=== PATIENT | male | born 1955 | race Two or more races ===

== ENCOUNTER 2025-03-14 08:07 | Inpatient (IN) | payer OTHER ==
[~2025-03-14] VITALS: Ht 188 cm; Wt 122.4 kg
[2025-03-14] MEDS ORDERED: ceFAZolin 2 GM/D5W50ml 50 ML IV ONE (08:20)
[2025-03-14] MEDS ORDERED: KETAMINE 50mg/ML 1ml syringe ONE (11:53)
[2025-03-14] MEDS ORDERED: GLYCOPYRROLATE 0.2 MG/ML 1ML VIAL ONE (11:54)
[2025-03-14] MEDS ORDERED: PROPOFOL 10 MG/ML 20 ML IV ONE (11:54)
[2025-03-14] MEDS ORDERED: fentaNYL CITRATE 100 MCG/2 ML VL ONE (11:54)
[2025-03-14] MEDS ORDERED: fentaNYL CITRATE 5 ML ONE (11:54)
[2025-03-14] MEDS ORDERED: HYDROmorphone HCL 2 MG/ML VL/or syr ONE (11:54)
[2025-03-14] MEDS ORDERED: MIDAZOLAM HCL 2MG/2ML 2ml VIAL (1mg/ml) ONE (11:54)
[2025-03-14] MEDS ORDERED: KETOROLAC TROMETH 30 MG/ML 1ML VIAL ONE (11:54)
[2025-03-14] MEDS ORDERED: ROCURONIUM 10MG/ML 10ML VIAL IV ONE (11:54)
[2025-03-14] MEDS ORDERED: ONDANSETRON HCL 4 MG/2 ML VIAL ONE (11:54)
--- NOTE | 2025-03-14 12:10 | DVHHP2 ---
Admitting Diagnosis: tammy man being admitted for elective spine surgery History of Present Illness Timing/Duration of Back Pain: Getting worse Quality of Back Pain: Fullness, Sharpness, Stabbing Back Pain Location: Lumbar spine Back Pain Radiation: Thigh area, Lower legs Method of Injury/Prior Factors: Prior injury Modifying Factors for Back Sarahy: None Associated Symptoms of Back Pa: Numbness in legs, Numbness in feet, Tingling in legs, Tingling in feet, Sensory loss, Motor loss Review of Systems Constitutional: No symptom reported Ears, Nose, & Throat: No symptom reported Eyes: No symptom reported Pulmonary/Respiratory: No symptom reported Cardiovascular: No symptom reported Genitourinary: No symptom reported Musculoskeletal: Muscle stiffness, Muscle atrophy Skin: No symptom reported Psychiatric: No symptom reported Endocrine: No symptom reported Hemotologic/Lymphatic: No symptom reported H&P Exam Vital Signs Vital Signs Date Time Temp Pulse Resp B/P (MAP) Pulse Ox O2 Delivery O2 Flow Rate FiO2 03/14/25 08:39 97.8 66 20 157/89 (111) 97 97.8 General Appeara: Well developed, Well nourished, Normal Appearance Head Exam: Normal inspection Neck Exam: Normal inspection, Non-tender, Normal alignment Eye Exam: bilateral eye Normal inspection, bilateral eye PERRL, bilateral eye EOMI Ear Exam: bilateral ear Auricle normal, bilateral ear Canal normal, bilateral ear TM normal Nasal Exam: Normal inspection Mouth: Normal Inspection Pulmonary/Respiratory: Normal inspection, Normal breath sounds, Chest non- tender, Lungs clear Cardiovascular/Chest: Normal inspection, Regular rate, Normal Rhythm Abdominal Exam: Normal bowel sounds, Soft, No tenderness, No hepatospenomegaly, No masses Rectal Exam: Deferred Back Exam: Decreased range of motion, Muscle spasm Pelvic Exam: Not done Male Genital Exam: Not done Shoulder Exam: Normal inspection, Non-tender, Normal ROM Elbow/Forearm Exam: Normal inspection, Non-tender, Normal ROM Hand Exam: Normal inspection, Non-tender, Normal ROM Hip exam: Normal inspection, Non-tender, Normal range of motion Legs: bilateral leg non-tender, bilateral leg normal inspection, bilateral leg normal range of motion, bilateral leg no evidence of injury Knees: bilateral knee non-tender, bilateral knee normal inspection, bilateral knee normal range of motion, bilateral knee no evidence of injury Ankle Exam: bilateral ankle Normal inspection, bilateral ankle Non-tender, bilateral ankle Normal range of motion, bilateral ankle No evidence of injury Foot: bilateral foot non-tender, bilateral foot normal inspection, bilateral foot normal range of motion, bilateral foot no evidence of injury Tendon/ Neuro: Motor deficit, Sensory deficit WOODWORKER Exam: Normal hearing, Normal speech, PERRL Motor/Sensory: Sensory deficit, Weak motor strength RLE, Weak motor strength LLE Deep Tendon Ref: All intact Neuro/Mental St: Alert, Oriented Appearance: Appropriate appearance, Appropriate insight Eye contact/ Speech: Cooperative, Good eye contact, Normal speech Coordination/Gait: Abnormal gait Skin Exam: Normal inspection, Normal color, Warm/dry Lymphatic: Normal inspection Assessment/Plan Primary Diagnosis lumbar spinal stenosis with severe neurogenic claudication Plan admit for elective spine surgery Plan discussed with: Patient LENNY QUINTERO MD Mar 14, 2025 12:09
[2025-03-14] MEDS ORDERED: TRANEXAMIC ACID 20 ML ONE (12:42)
[2025-03-14] MEDS ORDERED: VANCOMYCIN HCL 1000 MG VL ONE (12:43)
[2025-03-14] MEDS ORDERED: SUGAMMADEX 200mg/2ml Vial (100MG/ML) IV ONE (15:07)
[2025-03-14] MEDS ORDERED: MORPHINE SULFATE INJ 2 MG/ml SYRG IV PRN ×2 (16:00)
[2025-03-14] MEDS ORDERED: NITROGLYCERIN 0.4 MG SL TAB SL PRN (16:00)
[2025-03-14] MEDS ORDERED: ONDANSETRON HCL 4 MG/2 ML VIAL IV PRN (16:00)
[2025-03-14] MEDS ORDERED: ACETAMINOPHEN 325 MG TAB PO PRN (16:00)
[2025-03-14] MEDS ORDERED: HYDROcodone-ACET 10/325MG TAB PO PRN (16:00)
--- NOTE | 2025-03-14 16:04 | DVHOP2 ---
Operative Report - 2 Report Details Date: 03/14/25 Preop Diagnosis: lumbar spinal stenosis with incapacitating neurogenic claudication Postop Diagnosis: same Surgeon: Meng Mena MD Commercial Roofing Estimator: Nanci Talavera Anesthesiologist: Myrna Husain MD Anesthesia: General Consent: The patient was informed of the risks and benefits of the procedure. These include but are not limited to complications of anesthesia, postoperative infection, incomplete relief of symptoms, recurrence of symptoms, damage to blood vessels, nerves and tendons, deep venous thrombosis, pulmonary embolism and possible need for repeat surgery in the future. Name of Procedure Performed Pre-op Diagnosis: Lumbar Degenerative Disk Disease and Lumbar Spinal Stenosis causing Incapacitating back pain, radiculopathy and progressive neurologic deficit Post-op Diagnosis: Lumbar Degenerative Disk Disease and Lumbar Spinal Stenosis causing Incapacitating back pain, radiculopathy and progressive neurologic deficit Procedure: Lumbar 5 laminectomy with Lumbar 5 foraminotomies and facetectomies to decompress central canal and Lumbar 5 nerve roots Lumbar 4 laminectomy with Lumbar 4 foraminotomies and facetectomies to decompress central canal and Lumbar 4 nerve roots Lumbar 4 to 5 posterior spinal interbody fusion with PEEK cage / bone graft Lumbar 4 to 5 posterior spinal instrumentation with pedicle screws Local Bone Autograft For Fusion Allograft Bone Substitute (Bacterin) to augment Fusion Use of Demineralized Bone Matrix to Augment Fusion Microscope For Microdissection Surgeon: Meng Mena MD Assist: BERENICE Tang Anesthesia: General Fluids and EBL: See anesthesia note Patient was seen in the Pre Anesthesia Care Unit (PACU) and the operative site was initialed by me. All questions were answered to the patients satisfaction and chart reviewed. The patient was taken to the operative room where pre- operative antibiotics were given 30 minutes prior to incision. General anesthesia was induced and neuro-monitoring leads placed. Edward catheter was placed. The patient was turned prone onto the [facility] [place] spinal table. While positioning, I made sure that the belly was free to allow proper expansion of the lungs. The hips were extended and all bony prominences padded. The shoulders were abducted 80 degree and the elbows flexed 100 degrees with no tension on the brachial plexus. I check the foot arterial pulses and they were palpable. The patient was prepped and draped and time out was taken at this time per usual protocol. At this time, the C-arm fluoroscope was brought in and was used to aric the incision borders proximally and distally. Using a Number 10 Blade, an incision was made extending it proximally and distally per C arm aric from the posterior spinous process of lumbar 4,5 down to the lumbo-dorsal fascia. All bleeding was controlled with electrocautery. Self-retaining retractors were placed. Electrocautery was then used to take down the lumbo- dorsal fascia, to free the muscle off the bone bilaterally. A Timmy retractor was placed over the posterior spinous process proximally and a lateral C-arm fluoroscope image was taken to insure we were at the correct level. Next, using bovie electro cautery, The deep fascia laterally to the facet joints was removed to expose the transverse processes of lumbar 4 and 5 while taking care to avoid injuring the facet capsule at the proximal end of the incision. Next, the microscope was bought in for visualization and using a Luxell rongeur, the posterior spinous process of lumbar 4 and 5 bone were removed and the bone was saved for use as local autograft. I used alternating Kerison 2 mm and 3 mm rongeurs to perform central laminectomies lumbar 5 and 4 to decompress the central canal. Next using alternating Kerison 2mm and 3 mm rongeurs, the superior articular facets of lumbar 4 and 5 were removed bilaterally to decompress the lateral recess (facetectomies) and then extended proximally to decompress the foramen bilaterally (foraminotomies). I used a ball tipped nerve probed to insure that the respective nerve roots were able to be mobilized 5mm in each direction were unimpeded in the lateral recess and foramen. Next I carefully inspected the dura to make sure no durotomy was visible and it was not. Next I retracted the lumbar 5 nerve root on the right side medially and used increased size edwina to prepare the disk space. Further preparation was done the curved curettes and a pituitary ronegour to remove loose tissue to get down to a clean bed of bleeding bone. Next I used trials until the proper size and tension achieved and placed a PEEK inter body device with bone graft placed in it into the L4/5 disc space. I covered the exposed dura with gelfoam soaked in thrombin and the microscope was wheeled away from the operative filed. The C-arm fluoroscope was brought in and perfect AP views of the lumbar 4 and 5 pedicles were obtained. I placed bilateral pedicle screws at these levels by: using a Lenke awl to make a fixed wing pilot hole, then a ball tip robe to make sure there was no pedicle breach, then a tap to prepare the track and a 6.5 mm diameter 45 mm length pedicle screw was placed bilaterally. This step to place bilateral pedicle screws was repeated up to the lumbar 4 and 5 level. Next, the c-arm fluoroscope took an AP and lateral x-ray to ensure proper placem ent of the pedicle screws. Next, the neuro-stimulation probe was placed over the tip of each screw and each screw stimulated only after a current greater than 10 mA was delivered to the screw. Next , I took a Midas Jacek Drill to decorticate the transverse process which were exposed and local bone graft, Bacterin allograft bone substitute and Demineralized bone matrix were placed a long the inter transverse process intervals bilaterally (the fusion bed). Next a curved misti sized to fit the pedicle screw interval was placed and secured to each pedicle screw using set screws, The set screws were tightened using a torque screwdriver (set to 10 N*M torque) to secure the misti to the pedicle screws bilaterally. Final AP and lateral C arm fluoroscopic films were taken at this time. Next a 10 Maori diameter Hemovac drain was laced deep to the lumbo- dorsal fascia. The lumbo-dorsal fascia was closed with interrupted 0-Vicryl sutures. The subcutaneous tissue was closed with interrupted 2-0 Vicryl sutures. The skin was closed with running 2-0 nylon suture. Sterile dressings were place. The pt. was turned supine onto the stretcher, extubated and taken to the recovery room in stable condition. Cpt code: [id number] Procedure Details Procedure Details: see name of procedure section Condition Stable Disposition Still a Patient MENG MENA MD Mar 14, 2025 16:03
[2025-03-14 16:24] VITALS: PULSE 64; RESP 12; O2SAT 98
[2025-03-14] MEDS ORDERED: ONDANSETRON HCL 4 MG/2 ML VIAL IV ONE (16:30)
[2025-03-14] MEDS ORDERED: HYDROmorphone HCL 2 MG/ML VL/or syr IV PRN (16:30)
[2025-03-14 17:00] VITALS: BP 136/86; PULSE 60; RESP 16; O2SAT 97
[2025-03-14] MEDS: D5W/SOD CHLO 0.9% 1,000 ML IV SCH (18:08)
[2025-03-14 18:38] VITALS: O2SAT 97
[2025-03-14] MEDS ORDERED: CYCL-839 PO (18:45)
[2025-03-14 20:00] VITALS: RESP 17; O2SAT 98
[2025-03-14 21:00] VITALS: BP 138/89; PULSE 73; RESP 17; TEMP 97.4; O2SAT 97
[2025-03-14] MEDS: DOCUSATE SOD 100 MG CAP PO SCH (21:46)
[2025-03-14] MEDS: CYCLOBENZAPRINE HCL 10 MG TAB PO SCH (21:48)
[2025-03-14] MEDS: ceFAZolin 1GM/50ML 50 ML IV SCH (21:50)
[2025-03-15] VITALS (7 sets, daily range): BP systolic 119–126; BP diastolic 65–76; PULSE 65–81; RESP 18–22; TEMP 98–99.2; O2SAT 93–98
--- NOTE | 2025-03-15 11:35 | DVH ---
FLUOROSCOPY TIME: 115 seconds TECHNIQUE: Intraoperative radiographs of the lumbosacral spine were obtained. COMPARISON: None FINDINGS: Refer to intraoperative report for further evaluation. IMPRESSION: Refer to intraoperative report for further evaluation.
--- NOTE | 2025-03-15 13:56 | DVHINCON2 ---
Date Seen: Mar 15, 2025 Referring Physician Orthopedic spine surgery. Reason for Consultation Medical management. History of Present Illness 69-year-old male with a known history of chronic back pain for decades presented to the hospital for elective surgery for lumbar spine surgery. Patient is currently status post L4-5 lumbar spine surgery postop day one. Patient denies any back pain. Patient has stated that he has numbness and tingling in the legs for decades. He denies any known cardiac history, any active chest pain shortness of breaths. Past Medical History Chronic back pain Chronic numbness and tingling in the bilateral lower extremities. Past Surgical History Appendectomy Status post L4-5 lumbar spine surgery Allergies: Coded Allergies: NO KNOWN ALLERGIES (Unverified , 03/13/25) Home Meds Reported Medications Cyclobenzaprine Hcl (Cyclobenzaprine Hcl) 10 Mg Tab, 10 MG PO, TAB 03/14/25 Current Medications Current Medications Medications (Trade) Dose Ordered Sig/Yobani Route PRN Reason Start Time Stop Time Status Last Admin Dextrose/Sodium Chloride 1,000 ml @ 100 mls/hr Q10H IV 03/14/25 16:00 03/14/25 18:08 Ondansetron HCl (Zofran) 4 mg Q4HP PRN IV NAUSEA / VOMITING 03/14/25 16:00 Acetaminophen (Tylenol Tablet) 650 mg Q6HP PRN PO MILD PAIN (1-3 PAIN SCALE) 03/14/25 16:00 Acetaminophen/ Hydrocodone Bitart ([place]ac[place] 10/325MG Tab) 1 tab Q6HP PRN PO MODERATE PAIN (4-6 PAIN SCALE) 03/14/25 16:00 Morphine Sulfate 1 mg Q4HP PRN IV SEVERE PAIN (7-10 PAIN SCALE) 03/14/25 16:00 Cyclobenzaprine HCl (Flexeril Tablet) 10 mg TID PO 03/14/25 22:00 03/15/25 05:21 Docusate Sodium (Colace Capsule) 100 mg BID PO 03/14/25 22:00 03/15/25 10:15 Cefazolin Sodium 50 ml @ 100 mls/hr Q8HR IV 03/14/25 22:00 03/16/25 14:29 03/15/25 05:19 Nitroglycerin (Ntrostat Sublingual) 0.4 mg Q5MINP PRN SL FOR CHEST PAIN 03/14/25 16:00 Morphine Sulfate 2 mg Q30M PRN IV FOR CHEST PAIN 03/14/25 16:00 Hydromorphone HCl (Dilaudid Injection) 0.5 mg Q10M PRN IV SEVERE PAIN (7-10 PAIN SCALE) 03/14/25 16:30 03/14/25 17:11 DC Review of Systems 12 review of system are negative besides mentioned above. 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 1. Lumbar radiculopathy 2. Lumbar spine stenosis status post L4-5 lumbar spine surgery 3. Bilateral lower extremity numbness/tingling/neurogenic claudication secondary to lumbar spine stenosis -pain meds as needed, PT evaluation and treatment, discharge plan per orthopedic spine surgery. -plan of care discussed with the patient who understand verbalized understanding and agreeable to plan. Problems(with codes): (1) Lumbar spinal stenosis (2) Neurogenic claudication due to lumbar spinal stenosis (3) Lumbar radiculopathy Plan discussed with: Patient Date of Service: Mar 15, 2025 Billing Provider: MARE CANSECO MD Common Visit Codes: NOT BILLABLE MARE CANSECO MD Mar 15, 2025 13:56
--- NOTE | 2025-03-15 16:06 | DVHPN2 ---
Progress Note - Surgical Date Seen: Mar 14, 2025 Post op day Post op day: 1 Subjective Review of Systems: HEENT:Normal, CVS:Normal, RESPIRATORY:Normal, GI:Normal, :Normal, MSK:Normal, NEURO:Normal (LBP) Objective Vital signs Vital Sign Date Time Temp Pulse Resp B/P (MAP) Pulse Ox O2 Delivery O2 Flow Rate FiO2 03/15/25 12:52 98.1 65 20 125/70 (88) 98 98.1 03/15/25 08:10 Room Air* 0 21 Total Intake and Output 03/14/25 03/14/25 03/15/25 15:00 23:00 07:00 Intake Total 110 ml 50 ml 650 ml Output Total 530 ml 500 ml Balance 110 ml -480 ml 150 ml Medications Current Medications Medications Dose Ordered Sig/Yobani Route Start Time Stop Time Status Last Admin Dose Admin Dextrose/Sodium Chloride 1,000 ml @ 100 mls/hr Q10H IV 03/14/25 16:00 03/14/25 18:08 100 MLS/HR Ondansetron HCl 4 mg Q4HP PRN IV 03/14/25 16:00 Acetaminophen 650 mg Q6HP PRN PO 03/14/25 16:00 Acetaminophen/ Hydrocodone Bitart 1 tab Q6HP PRN PO 03/14/25 16:00 Morphine Sulfate 1 mg Q4HP PRN IV 03/14/25 16:00 Cyclobenzaprine HCl 10 mg TID PO 03/14/25 22:00 03/15/25 14:18 10 MG Docusate Sodium 100 mg BID PO 03/14/25 22:00 03/15/25 10:15 100 MG Cefazolin Sodium 50 ml @ 100 mls/hr Q8HR IV 03/14/25 22:00 03/16/25 14:29 03/15/25 14:12 100 MLS/HR Nitroglycerin 0.4 mg Q5MINP PRN SL 03/14/25 16:00 Morphine Sulfate 2 mg Q30M PRN IV 03/14/25 16:00 Examination: GENERAL:Normal, HEENT:Normal, NECK:Normal, LUNGS:Normal, CVS:Normal, ABDOMEN:Normal, MSK:Normal, SKIN:Normal (JANICE and drains intact), NEURO:Normal (!))5 preop sy,ptome resolved), :Normal Problem List/Assessment/Plan Problems: (1) Acute post-operative pain (2) Muscle spasm of back Assessment and Plan POD # 1 Events of today Drain 1. keep Drain 2. keep JANICE CDI patient has walked 6 ;aps around ns station, reports 100 % resolution in preoperative symptoms, only expected post opp pain now. Patient is progressing as expected, +BM. voiding, eating drinking. -Disposition: -Pending -Discharge RX: -Follow up appointment: with Dr Mena on [id number] [facility] [address] [place] [id number] -Pain: - IV pain meds post op day 1, with PO supplementation, goal is to progress weaning off IV medications and control pain with PO only. morphine 1mg q 4 hours (PAIN 7-10) - P.O. analgesics:Tylenol 650MG (PAIN 1-3) Sugarloaf 10/325 mg (PAIN 4-6) - Muscle relaxers scheduled administration. This is a beneficial medications for the incisional pain as it is mostly related to muscle spasms. Flexeril 10 mg TID - Cepacol throat lozenges as needed for sore throat -Antibiotics Operative recommendations: -Postoperative dose:-Post operative antibiotics cefazolin 1 g IV piggyback every 8 hours x 48 hours total of 6 doses -DVT PPX: -Hold all chemical DVT/ blood thinners for 14 days postoperatively -use mechanical DVT PPX such as SCD's, ambulation -Activity: -Pending PT evaluation and patients progression -Sit at side of bed for meals -Goal: Ambulate independently and safely (may use assistive devices if needed) -Medical Therapy goals: -Afebrile- Patient may develop a expected post operative fever by day 2-3, this may not be accompanied with a elevation in WBC. if fever develops: Acetaminophen for fever. Albuterol nebulizer Tx every 12 hours for 24 hours to facilitate adequate lung expansion and prevent development of atelectasis. -Euglycemic: bloods sugars under 130mmol/L for optimal healing -Normotensive: Avoid events of hypertension. This helps to keep post operative healing intact and avoids destabilization of beneficial hemostatic coagulation. -Lumbar: -If patient is comfortable encouraged the patient to lay on their side to facilitate wound healing -Drains: -Hemovac drains: These will be to full compression unless otherwise ordered. Please record and document output AND characteristic of fluid present independently EVERY 6 hours more often as needed. if there in no output indicate this by documenting 0ml. If output is greater than 100 ml in one hour of delmy blood call provider. These drains will be removed once the drainage is at a acceptable level (generally less than 100ml in 24 hours) -Janice dressing: This will stay in place and will be removed at the patients follow up visit. Nursing is to assess the seal and power source. The seal should be intact and the power source should have a green flashing light indicating it is functioning well. Batteries can last up to 14 days. If a leak develops the dressing edges can be reinforced with a Tegaderm dressing to reestablish intact seal. The Janice dressing is NOT a wound vac. This does not get changed, it does not need home health management. -Record output independently, drain 1. Is a deep drain and drain 2. Is a superficial drain. Wound drainage is described by type, color, amount, and odor. Drainage can be 1 Serous: Clear and thin, may be present in healing healthy wound. 2 Serosanguineous containing blood may also be present and healthy healing wound 3. Sanguinous primarily blood 4. Purulent this is thick, white, and pus like. It may be indicated to give of a infection and should constitute a call to the provider immediately with the plan that the sample should be cultured. -Edward: discontinued in OR -Dressings Take care not to disrupt the JANICE dressing seal. If there is a break in the seal it can be trouble shot with a Tegaderm dressing. -Dressing to Hemovac drains may be changed once the drains have been removed by the provider. -Bowel management: -Colace 100mg bid -Diet: -Clear liquid diet and advance as patient tolerates within dietary limitations ( example: diabetic, Cardiac) -Incentive Spirometer: -10 x hour while awake, RN please educate and observe repeat demonstration, have IS at bedside POD #1 -X-rays: - none indicated at this time -Consults: -Physical Therapy evaluation, treatment recommendations, and discharge rec ommendations Call with questions Hever Gutiérrez ACNP- Orthopaedic Spine Surgery nurse practitioner For Dr Caro Mena Patient was examined, chart reviewed, labs evaluated, and diagnostic studies and findings analyzed. Case was discussed with Dr. Meng Mena who formulated the plan of care. This medical document was created using an electronic medical record system with [employer] dictation system. Although this document has been carefully reviewed, there might still be some phonetic and typographical errors. These areas are purely typographical due to imperfections of the software programs, and do not reflect any compromise in the patient's medical care. My Orders My Orders Orders - LE GUTIÉRREZ NP Procedure Category Date Status Time Admit ADMIT 03/14/25 Transmitted 17:27 Lumbar Spine 3 View XY 03/15/25 Resulted 10:32 C Arm Fluoroscopy Up XY 03/15/25 Resulted To 60min 10:32 * Hospitalist Consult CONS 03/15/25 Transmitted Plan discussed with Plan discussed with: Patient, Other (Jonti x [phone]) Visit Coding Surgery Date of Service if different f: Mar 14, 2025 Billing Provider: LE GUTIÉRREZ NP Surgery Visit Codes: NOT BILLABLE LE GUTIÉRREZ NP Mar 15, 2025 16:06
[2025-03-16] VITALS (8 sets, daily range): BP systolic 120–140; BP diastolic 58–86; PULSE 54–79; RESP 16–20; TEMP 97.5–98.7; O2SAT 96–98
--- NOTE | 2025-03-16 14:46 | DVHPN2 ---
Subjective Overnight events noted. Patient's drains are 50 mL/25 mL. Complaining of soreness in the back. 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 Medications Current Medications Medications Dose Ordered Sig/Yobani Route Start Time Stop Time Status Last Admin Dose Admin Ondansetron HCl 4 mg Q4HP PRN IV 03/14/25 16:00 Acetaminophen 650 mg Q6HP PRN PO 03/14/25 16:00 Acetaminophen/ Hydrocodone Bitart 1 tab Q6HP PRN PO 03/14/25 16:00 Morphine Sulfate 1 mg Q4HP PRN IV 03/14/25 16:00 Cyclobenzaprine HCl 10 mg TID PO 03/14/25 22:00 03/16/25 05:12 10 MG Docusate Sodium 100 mg BID PO 03/14/25 22:00 03/16/25 09:03 100 MG Nitroglycerin 0.4 mg Q5MINP PRN SL 03/14/25 16:00 Morphine Sulfate 2 mg Q30M PRN IV 03/14/25 16:00 Assessment/Plan Assessment/Plan 69-year-old male with a known history of chronic back pain is here for lumbar spine surgery. 1. Lumbar radiculopathy 2. Lumbar spine stenosis status post L4-5 lumbar spine surgery 3. Bilateral lower extremity numbness/tingling/neurogenic claudication secondary to lumbar spine stenosis -pain meds as needed, PT evaluation and treatment, discharge plan per orthopedic spine surgery once the drains are removed. -plan of care discussed with the patient who understand verbalized understanding and agreeable to plan. Problems(with codes): (1) Lumbar spinal stenosis (2) Neurogenic claudication due to lumbar spinal stenosis (3) Lumbar radiculopathy Plan discussed with: Patient Date of Service: Mar 16, 2025 Billing Provider: MARE CANSECO MD Common Visit Codes: NOT BILLABLE MARE CANSECO MD Mar 16, 2025 14:46
--- NOTE | 2025-03-16 15:24 | DVHPN2 ---
Progress Note - Surgical Date Seen: Mar 16, 2025 Post op day Post op day: 2 Subjective Patient reports: No new complaints, Feels better Review of Systems: HEENT:Normal, HEENT:Abnormal, CVS:Normal, RESPIRATORY:Normal, GI:Normal, :Normal, MSK:Normal (improving from preop), NEURO:Normal Objective Vital signs Vital Sign Date Time Temp Pulse Resp B/P (MAP) Pulse Ox O2 Delivery O2 Flow Rate FiO2 03/16/25 13:00 97.5 79 17 137/78 (97) 98 97.5 03/16/25 08:00 Room Air* 0 21 Total Intake and Output 03/15/25 03/15/25 03/16/25 15:00 23:00 07:00 Intake Total 50 ml 1368 ml 850 ml Output Total 600 ml 1450 ml Balance 50 ml 768 ml -600 ml Medications Current Medications Medications Dose Ordered Sig/Yobani Route Start Time Stop Time Status Last Admin Dose Admin Ondansetron HCl 4 mg Q4HP PRN IV 03/14/25 16:00 Acetaminophen 650 mg Q6HP PRN PO 03/14/25 16:00 Acetaminophen/ Hydrocodone Bitart 1 tab Q6HP PRN PO 03/14/25 16:00 Morphine Sulfate 1 mg Q4HP PRN IV 03/14/25 16:00 Cyclobenzaprine HCl 10 mg TID PO 03/14/25 22:00 03/16/25 14:42 10 MG Docusate Sodium 100 mg BID PO 03/14/25 22:00 03/16/25 09:03 100 MG Nitroglycerin 0.4 mg Q5MINP PRN SL 03/14/25 16:00 Morphine Sulfate 2 mg Q30M PRN IV 03/14/25 16:00 Examination: GENERAL:Normal, GENERAL:Abnormal (dressing), HEENT:Normal, NECK:Normal, LUNGS:Normal, CVS:Normal, ABDOMEN:Normal, MSK:Normal, SKIN:Normal (The dressing in place, drains in place x2 discontinue drain 2. Today), NEURO:Normal (greatly improved preoperative symptoms.), :Normal Problem List/Assessment/Plan Problems: (1) Muscle spasm of back (2) Acute post-operative pain Assessment and Plan POD # 2 Events of today Drain 1. keep Drain 2. will DC today JANICE CDI patient is walking very well Patient is progressing as expected, +BM. voiding, eating drinking. Pain Is well controlled, -Disposition: -Pending -Discharge RX: Needed patient has medications from his preoperative visit -Follow up appointment: with Dr Mena on scheduled appointment date in two weeks postop [id number] [phone] [facility] [address] [place] [address] -Pain: - IV pain meds post op day 1, with PO supplementation, goal is to progress weaning off IV medications and control pain with PO only. morphine 1mg q 4 hours (PAIN 7-10) - P.O. analgesics:Tylenol 650MG (PAIN 1-3) [place] 10/325 mg (PAIN 4-6) - Muscle relaxers scheduled administration. This is a beneficial medications for the incisional pain as it is mostly related to muscle spasms. Flexeril 10 mg TID - Cepacol throat lozenges as needed for sore throat -DVT PPX: -Hold all chemical DVT/ blood thinners for 14 days postoperatively -use mechanical DVT PPX such as SCD's, ambulation -Activity: -up to chair for meals -Sit at side of bed for meals -Goal: Ambulate independently and safely (may use assistive devices if needed) -Medical Therapy goals: -Afebrile- Patient may develop a expected post operative fever by day 2-3, this may not be accompanied with a elevation in WBC. if fever develops: Acetaminophen for fever. Albuterol nebulizer Tx every 12 hours for 24 hours to facilitate adequate lung expansion and prevent development of atelectasis. -Euglycemic: bloods sugars under 130mmol/L for optimal healing -Normotensive: Avoid events of hypertension. This helps to keep post operative healing intact and avoids destabilization of beneficial hemostatic coagulation. -Lumbar: -If patient is comfortable encouraged the patient to lay on their side to facilitate wound healing -Drains: -Hemovac drains: These will be to full compression unless otherwise ordered. Please record and document output AND characteristic of fluid present independently EVERY 6 hours more often as needed. if there in no output indicate this by documenting 0ml. If output is greater than 100 ml in one hour of delmy blood call provider. These drains will be removed once the drainage is at a acceptable level (generally less than 100ml in 24 hours) -Janice dressing: This will stay in place and will be removed at the patients follow up visit. Nursing is to assess the seal and power source. The seal should be intact and the power source should have a green flashing light indicating it is functioning well. Batteries can last up to 14 days. If a leak develops the dressing edges can be reinforced with a Tegaderm d ressing to reestablish intact seal. The Janice dressing is NOT a wound vac. This does not get changed, it does not need home health management. -Record output independently, drain 1. Is a deep drain . Wound drainage is described by type, color, amount, and odor. Drainage can be 1 Serous: Clear and thin, may be present in healing healthy wound. 2 Serosanguineous containing blood may also be present and healthy healing wound 3. Sanguinous primarily blood 4. Purulent this is thick, white, and pus like. It may be indicated to give of a infection and should constitute a call to the provider immediately with the plan that the sample should be cultured. -Dressings Take care not to disrupt the JANICE dressing seal. If there is a break in the seal it can be trouble shot with a Tegaderm dressing. -Dressing to Hemovac drains may be changed once the drains have been removed by the provider. -Bowel management: -Colace 100mg bid -Diet: -patient tolerating diet within dietary limitations ( example: diabetic, Cardiac) -Incentive Spirometer: -10 x hour while awake, RN please educate and observe repeat demonstration, have IS at bedside POD #1 -X-rays: - none indicated at this time -Consults: -Physical Therapy evaluation, treatment recommendations, and discharge recommendations Call with questions Hever Talavera ACNP- Orthopaedic Spine Surgery nurse practitioner For Dr Caro Mena Patient was examined, chart reviewed, labs evaluated, and diagnostic studies and findings analyzed. Case was discussed with Dr. Meng Mena who formulated the plan of care. This medical document was created using an electronic medical record system with [employer] system. Although this document has been carefully reviewed, there might still be some phonetic and typographical errors. These areas are purely typographical due to imperfections of the software programs, and do not reflect any compromise in the patient's medical care. My Orders My Orders Orders - LE TALAVERA NP Procedure Category Date Status Time Is At Bedside. KAYLEE 03/15/25 In Process 20:58 Communication Order ORDERS 03/15/25 Transmitted 21:04 Plan discussed with Plan discussed with: Patient, Spouse, Other (Core day RN) Visit Coding Surgery Date of Service if different f: Mar 14, 2025 Billing Provider: LE TALAVERA NP Surgery Visit Codes: NOT BILLABLE LE TALAVERA NP Mar 16, 2025 15:24
[2025-03-17] VITALS (7 sets, daily range): BP systolic 107–148; BP diastolic 67–87; PULSE 66–99; RESP 16–17; TEMP 36.9; O2SAT 94–98
--- NOTE | 2025-03-17 13:19 | DVHPN2 ---
Progress Note - Surgical Date Seen: Mar 17, 2025 Post op day Post op day: 3 Subjective Patient reports: No new complaints, Feels better Review of Systems: HEENT:Normal, CVS:Normal, RESPIRATORY:Normal, GI:Normal, :Normal, MSK:Normal, NEURO:Normal Objective Vital signs Vital Sign Date Time Temp Pulse Resp B/P (MAP) Pulse Ox O2 Delivery O2 Flow Rate FiO2 03/17/25 09:00 98.1 70 16 140/87 (104) 97 98.1 03/17/25 08:10 Room Air* 0 21 l Total Intake and Output 03/16/25 03/16/25 03/17/25 15:00 23:00 07:00 Intake Total 900 ml 500 ml Output Total 75 ml 770 ml 600 ml Balance -75 ml 130 ml -100 ml Medications Current Medications Medications Dose Ordered Sig/Yobani Route Start Time Stop Time Status Last Admin Dose Admin Ondansetron HCl 4 mg Q4HP PRN IV 03/14/25 16:00 Acetaminophen 650 mg Q6HP PRN PO 03/14/25 16:00 Acetaminophen/ Hydrocodone Bitart 1 tab Q6HP PRN PO 03/14/25 16:00 Morphine Sulfate 1 mg Q4HP PRN IV 03/14/25 16:00 Cyclobenzaprine HCl 10 mg TID PO 03/14/25 22:00 03/17/25 05:45 10 MG Docusate Sodium 100 mg BID PO 03/14/25 22:00 03/17/25 11:20 100 MG Nitroglycerin 0.4 mg Q5MINP PRN SL 03/14/25 16:00 Morphine Sulfate 2 mg Q30M PRN IV 03/14/25 16:00 Examination: GENERAL:Normal, HEENT:Normal, NECK:Normal, LUNGS:Normal, CV S:Normal, ABDOMEN:Normal, MSK:Normal, SKIN:Normal (janice dressing intact), NEURO:Normal (great improvment in peroperative symptoms), :Normal Problem List/Assessment/Plan Problems: (1) Acute post-operative pain (2) Muscle spasm of back Assessment and Plan POD # 3 Events of today Drain 1. will DC today JANICE CDI patient is walking very well Patient is progressing as expected, +BM. voiding, eating drinking. Pain Is well controlled, clear to DC today -Disposition: -home -Discharge RX: Not needed patient has medications from his preoperative visit -Follow up appointment: with Dr Mena on scheduled appointment date in two weeks postop [id number] [phone] [facility] [address] [place] [address] -Pain: - IV pain meds post op day 1, with PO supplementation, goal is to progress oma gonzalez off IV medications and control pain with PO only. morphine 1mg q 4 hours (PAIN 7-10) - P.O. analgesics:Tylenol 650MG (PAIN 1-3) [place] 10/325 mg (PAIN 4-6) - Muscle relaxers scheduled administration. This is a beneficial medications for the incisional pain as it is mostly related to muscle spasms. Flexeril 10 mg TID - Cepacol throat lozenges as needed for sore throat -DVT PPX: -Hold all chemical DVT/ blood thinners for 14 days postoperatively -use mechanical DVT PPX such as SCD's, ambulation -Activity: -up to chair for meals -Sit at side of bed for meals -Goal: Ambulate independently and safely (may use assistive devices if needed) -Medical Therapy goals: -Afebrile- Patient may develop a expected post operative fever by day 2-3, this may not be accompanied with a elevation in WBC. if fever develops: Acetaminophen for fever. Albuterol nebulizer Tx every 12 hours for 24 hours to facilitate adequate lung expansion and prevent development of atelectasis. -Euglycemic: bloods sugars under 130mmol/L for optimal healing -Normotensive: Avoid events of hypertension. This helps to keep post operative healing intact and avoids destabilization of beneficial hemostatic coagulation. -Lumbar: -If patient is comfortable encouraged the patient to lay on their side to facilitate wound healing -Dressings Take care not to disrupt the JANICE dressing seal. If there is a break in the seal it can be trouble shot with a Tegaderm dressing. -Dressing to Hemovac drain site may be changed prior to DC -Bowel management: -Colace 100mg bid -Diet: -patient tolerating diet within dietary limitations ( example: diabetic, Cardiac) -Incentive Spirometer: -10 x hour while awake, RN please educate and observe repeat demonstration, have IS at bedside POD #1 -X-rays: - none indicated at this time -Consults: -Physical Therapy evaluation, treatment recommendations, and discharge recommendations Call with questions L. Ilan [facility] Orthopaedic Spine Surgery nurse practitioner For Dr Caro Mena Patient was examined, chart reviewed, labs evaluated, and diagnostic studies and findings analyzed. Case was discussed with Dr. Meng Mena who formulated the plan of care. This medical document was created using an electronic medical record system with [employer] dictation system. Although this document has been carefully reviewed, there might still be some phonetic and typographical errors. These areas are purely typographical due to imperfections of the software programs, and do not reflect any compromise in the patient's medical care. Plan discussed with Plan discussed with: Patient Visit Coding Surgery Date of Service if different f: Mar 14, 2025 Billing Provider: LE GUTIÉRREZ NP Surgery Visit Codes: NOT BILLABLE LE GUTIÉRREZ NP Mar 17, 2025 13:19
--- NOTE | 2025-03-17 14:07 | DVHDS2 ---
Discharge Summary Date of Admission Mar 14, 2025 at 15:58 Date of Discharge: Mar 17, 2025 Brief Hx & Hospital Course: 69-year-old male with a known history of chronic back pain who initially presented to the hospital for elective surgery for lumbar spine stenosis. Patient underwent lumbar spine surgery at L4-5 level. Patient does have known history of lumbar radiculopathy as well as lumbar spine stenosis. Patient is currently symptoms including bilateral lower extremity numbness techniques has been resolved. Patient's drains has been removed and Permanent cleared the patient to be discharged. Condition at Discharge: Stable Final Diagnosis/Problems List 69-year-old male with a known history of chronic back pain is here for lumbar spine surgery. 1. Lumbar radiculopathy 2. Lumbar spine stenosis status post L4-5 lumbar spine surgery 3. Bilateral lower extremity numbness/tingling/neurogenic claudication secondary to lumbar spine stenosis Discharge Disposition: Home with [facility] Discharge Will this Physician continue t: No Discharge Instruct/Medications Diet: Cardiac 2g Na,low cholest Activity: See Comment Activity comment: No driving, no playing on machinery, no signing legal documents while on pain medications. Follow Up/Referral: Follow up with the PCP in one week Follow up with Dr.Vikram Mena in one week Medications: As reconciled and prescribed. Miscellaneous Medications Cyclobenzaprine Hcl (Cyclobenzaprine Hcl), 10 MG PO, (Reported) Discharge Statement: "Patient was advised to return to the ER or call 911 if any headaches, dizziness, shortness of breath, chest pain, abdominal pain, bleeding, fevers, or worsening of medical condition. Patient was counseled about treatment plan, medications, possible side effects, patientverbalized understanding. All questions were answered to the best of my ability. This discharge took greater then 30 minutes in planning, reviewing documentation, counseling the patient, and discussing with other team members." ASSESSMENT ASSESSMENT Assessment 69-year-old male with a known history of chronic back pain is here for lumbar spine surgery. 1. Lumbar radiculopathy 2. Lumbar spine stenosis status post L4-5 lumbar spine surgery 3. Bilateral lower extremity numbness/tingling/neurogenic claudication secondary to lumbar spine stenosis Date of Service: Mar 17, 2025 Billing Provider: MARE CANSECO MD Common Visit Codes: NOT BILLABLE MARE CANSECO MD Mar 17, 2025 14:07
== END 2025-03-17 17:20 | disposition home health service (06) | DRG 451 ==
LOC: SUR 08:07 → OVERFLOW 15:58 → EAST 17:43
PROVIDERS: ADMIT Orthopaedic Surgery; ATTEND Internal Medicine
PROC: 01NB0ZZ Release Lumbar Nerve, Open Approach (ICD-10-PCS; 2025-03-14)
PROC: 00NY0ZZ Release Lumbar Spinal Cord, Open Approach (ICD-10-PCS; 2025-03-14)
PROC: 4A11X4G Monitoring of Peripheral Nervous Electrical Activity, Intraoperative, External Approach (ICD-10-PCS; 2025-03-14)
PROC: 0SG00AJ Fusion of Lumbar Vertebral Joint with Interbody Fusion Device, Posterior Approach, Anterior Column, Open Approach (ICD-10-PCS; principal; 2025-03-14 13:04)
DX: M48.062 Spinal stenosis, lumbar region with neurogenic claudication (principal); G89.29 Other chronic pain; M51.369 Other intervertebral disc degeneration, lumbar region without mention of lumbar back pain or lower extremity pain; M51.16 Intervertebral disc disorders with radiculopathy, lumbar region; G89.18 Other acute postprocedural pain
CPT/HCPCS: 72100; 76000; 86850; 86900; 86901; 97110; 97116; 97163; G0378; J1100; J1885; J1956; J2250; J2405; J2704